=== PATIENT | male | born 1945 | race Two or more races ===

== ENCOUNTER 2024-05-22 22:53 | Emergency (ER) | payer OTHER ==
[~2024-05-22] VITALS: Ht 180.3 cm; Wt 68.9 kg
[2024-05-22] MEDS ORDERED: COZAAR25 MG PO (23:48)
[2024-05-23] MEDS ORDERED: SODIUM CHLORIDE 0.45 % 500 ML IV STA (01:43)
[2024-05-23] MEDS ORDERED: CIPROFLOXACIN IN 5 % DEXTROSE 400 MG/200 ML PIGGYBAG IV STA (01:44)
[2024-05-23 02:44] LABS: URINE APPEARANCE Clear; URINE BILIRRUBIN Negative (NEGATIVE); URINE BLOOD Large; URINE COLOR Yellow; URINE GLUCOSE Negative (NEGATIVE); URINE KETONE Trace (NEGATIVE); URINE LEUKOCYTE Small; URINE NITRATE Positive; URINE PROTEIN Negative (NEGATIVE); URINE UROBILINOGEN 0.2 E.U./dl
[2024-05-23 02:47] LABS: URINE BACTERIA 5624.1 uL (0.0-1933); URINE CAST 1.52 uL (0.0-1.40); URINE EPITHELIAL CELLS 6.1 uL (0.0-38.8); URINE RBC 837.5 uL (0.0-20.8); URINE WBC 68.4 uL (0.0-23.2)
[2024-05-23 02:51] LABS: HEMATOCRIT 35.5 % (39.0-48.0); HEMOGLOBIN 11.7 g/dL (13-16.00); MEAN CELL VOLUME 87.3 fL (80.0-100.00); MEAN CORPUSCULAR HEMOGLOBIN 28.7 pg (27.00-32.0); MEAN CORPUSCULAR HGB CONC 32.8 g/dl (32.0-36.0); PLATELET COUNT 152 K/uL (150-450); RED BLOOD COUNT 4.07 M/uL (4.00-6.00); RED CELL DISTRIBUTION WIDTH 15.9 % (11.5-14.5)
[2024-05-23 03:02] LABS: CALCIUM 9.1 mg/dL (8.5-10.1); CREATININE SERUM 1.36 mg/dL (0.70-1.30); GFR 50.81; POTASSIUM 4.43 mEq/L (3.5-5.1)
== END 2024-05-23 04:48 | disposition home or self-care (01) ==
LOC: ER 22:54
DX: R31.9 Hematuria, unspecified (principal); N39.0 Urinary tract infection, site not specified; I10 Essential (primary) hypertension
CPT/HCPCS: 36415; 51702; 96365; 99282; J0744

== ENCOUNTER 2024-06-26 13:26 | Inpatient (IN) | payer OTHER ==
[~2024-06-26] VITALS: Ht 177.8 cm; Wt 68.0 kg
[~2024-06-26 13:26] MED LIST: COZAAR25 MG PO
[2024-06-26] MEDS ORDERED: TRAMADOL HCL 50 MG TABLET PO STA (15:40)
[2024-06-26 16:50] LABS: HEMATOCRIT 32.1 % (39.0-48.0); HEMOGLOBIN 10.3 g/dL (13-16.00); MEAN CELL VOLUME 85.4 fL (80.0-100.00); MEAN CORPUSCULAR HEMOGLOBIN 27.3 pg (27.00-32.0); PLATELET COUNT 168 K/uL (150-450); RED BLOOD COUNT 3.77 M/uL (4.00-6.00); RED CELL DISTRIBUTION WIDTH 16.6 % (11.5-14.5)
[2024-06-26 17:34] LABS: ALBUMIN 3.2 gm/dL (3.4-5.0); BILIRUBIN TOTAL 0.71 mg/dL (0.3-1.2); CREATININE SERUM 1.3 mg/dL (0.70-1.30); GFR 53.39; GLOBULINA 4.2 G/DL (2.4-3.5); POTASSIUM 5.02 mEq/L (3.5-5.1); TOTAL PROTEIN 7.4 gm/dL (6.4-8.2)
[2024-06-26 18:07] LABS: URINE APPEARANCE Cloudy; URINE BILIRRUBIN Negative (NEGATIVE); URINE BLOOD Moderate; URINE COLOR Yellow; URINE GLUCOSE Negative (NEGATIVE); URINE KETONE Trace (NEGATIVE); URINE LEUKOCYTE Moderate; URINE NITRATE Positive; URINE UROBILINOGEN 0.2 E.U./dl
[2024-06-26 18:08] LABS: URINE BACTERIA 6873.2 uL (0.0-1933); URINE CAST 1.67 uL (0.0-1.40); URINE EPITHELIAL CELLS 12.8 uL (0.0-38.8); URINE RBC 46.8 uL (0.0-20.8); URINE WBC 770.8 uL (0.0-23.2)
[2024-06-26 18:20] LABS: URINE PROTEIN 100 (NEGATIVE)
[2024-06-26] MEDS ORDERED: CEFTRIAXONE SODIUM 2,000 MG VIAL IV ONE (22:45)
[2024-06-26] MEDS ORDERED: 0.9 % SODIUM CHLORIDE 500 ML IV ONE (22:45)
[2024-06-26] MEDS ORDERED: KETOROLAC TROMETHAMINE 15 MG VIAL IU ONE (23:30)
[2024-06-26] MEDS ORDERED: ACETAMINOPHEN 500 MG GEL..CAP PO PRN (23:30)
[2024-06-26] MEDS ORDERED: 0.9 % SODIUM CHLORIDE 1,000 ML IV SCH (23:30)
[2024-06-26] MEDS ORDERED: MEPERIDINE HCL/PF 25 MG/ML VIAL IM PRN (23:30)
[2024-06-27 00:02] VITALS: BP 110/60
[2024-06-27 01:54] LABS: INR 1.12; PARTIAL THROMBOPLASTIN TIME 26.4 SECONDS (22.0-34.0); PROTHROMBIN TIME 12.1 SECONDS (9.0-11.5)
[2024-06-27 01:56] LABS: C-REACTIVE PROTEIN 3.66 MG/DL (0.00-0.29)
[2024-06-27 07:45] VITALS: BP 106/48; O2SAT 100
[2024-06-27] MEDS ORDERED: FAMOTIDINE/PF 20 MG in 0.9 % SODIUM CHLORIDE 8 ML IV PUSH SCH (09:00)
[2024-06-27] MEDS ORDERED: LOSARTAN POTASSIUM 25 MG TABLET PO SCH (09:00)
[2024-06-27] MEDS ORDERED: CEFTRIAXONE SODIUM 2,000 MG in 0.9 % SODIUM CHLORIDE 100 ML IV SCH (09:00)
[2024-06-27] MEDS ORDERED: ENOXAPARIN SODIUM 40 MG/0.4 ML SYRINGE SUBCUTANEO SCH (09:00)
[2024-06-27 18:07] VITALS: BP 176/71
[2024-06-28 00:13] VITALS: BP 126/57; O2SAT 96
[2024-06-28 06:16] LABS: HEMATOCRIT 27.4 % (39.0-48.0); HEMOGLOBIN 9.1 g/dL (13-16.00); MEAN CELL VOLUME 84.6 fL (80.0-100.00); MEAN CORPUSCULAR HEMOGLOBIN 28.1 pg (27.00-32.0); MEAN CORPUSCULAR HGB CONC 33.2 g/dl (32.0-36.0); PLATELET COUNT 143 K/uL (150-450); RED BLOOD COUNT 3.25 M/uL (4.00-6.00); RED CELL DISTRIBUTION WIDTH 16.2 % (11.5-14.5)
[2024-06-28 06:31] LABS: ALBUMIN 2.6 gm/dL (3.4-5.0); BILIRUBIN TOTAL 0.37 mg/dL (0.3-1.2); CALCIUM 8.2 mg/dL (8.5-10.1); CREATININE SERUM 1.54 mg/dL (0.70-1.30); GFR 43.91; GLOBULINA 3.3 G/DL (2.4-3.5); PHOSPHOROUS 3.3 mg/dL (2.5-4.9); POTASSIUM 5.01 mEq/L (3.5-5.1); PROSTATIC SPECIFIC ANTIGEN 3.04 NG/ML (0.010-4.00); TOTAL PROTEIN 5.9 gm/dL (6.4-8.2)
[2024-06-28 06:46] LABS: C-REACTIVE PROTEIN 2.57 MG/DL (0.00-0.29)
[2024-06-28 09:06] VITALS: BP 162/69; O2SAT 96
[2024-06-28] MEDS ORDERED: TAMSULOSIN HCL 0.4 MG CAP PO SCH (17:00)
[2024-06-28] MEDS ORDERED: MOMETASONE FUROATE 15 GM TUBE TOP SCH (17:00)
[2024-06-28] MEDS ORDERED: FINASTERIDE 5 MG TABLET PO SCH (17:00)
[2024-06-28 18:14] VITALS: BP 175/69
[2024-06-28] MEDS ORDERED: NA PHOS,M-B/NA PHOS,DI-BA 1 BOTTLE ENEMA RECTAL STA (22:27)
[2024-06-28 23:33] LABS: INR 1.07; PARTIAL THROMBOPLASTIN TIME 28.6 SECONDS (22.0-34.0); PROTHROMBIN TIME 11.6 SECONDS (9.0-11.5)
[2024-06-28 23:45] LABS: ALBUMIN 2.5 gm/dL (3.4-5.0); BILIRUBIN TOTAL 0.27 mg/dL (0.3-1.2); BILIRUBIN,CONJUGATED 0.11 mg/dL (0.0-0.2); BILIRUBIN,UNCONJUGATED 0.16 mg/dL (0.0-0.6); CREATININE SERUM 1.6 mg/dL (0.70-1.30); T4 FREE 1.03 NG/ML (0.76-1.46); T4 TOTAL 7.27 UG/DL (4.5-12.1); TOTAL PROTEIN 5.6 gm/dL (6.4-8.2); TSH 1.43 uIU/mL (0.358-3.74)
[2024-06-29 01:52] VITALS: BP 172/75; O2SAT 98
[2024-06-29 06:20] LABS: HEMATOCRIT 27.1 % (39.0-48.0); MEAN CELL VOLUME 84.7 fL (80.0-100.00); MEAN CORPUSCULAR HEMOGLOBIN 28.1 pg (27.00-32.0); MEAN CORPUSCULAR HGB CONC 33.1 g/dl (32.0-36.0); PLATELET COUNT 132 K/uL (150-450); RED CELL DISTRIBUTION WIDTH 16.3 % (11.5-14.5)
[2024-06-29 08:57] VITALS: BP 170/68; O2SAT 97
[2024-06-29] MEDS ORDERED: NA PHOS,M-B/NA PHOS,DI-BA 1 BOTTLE ENEMA RECTAL NR (09:00)
[2024-06-29 11:24] LABS: PLATELET ESTIMATE DECREASED (NORMAL)
[2024-06-29] MEDS ORDERED: VANCOMYCIN HCL 1,000 MG VIAL IV NR (13:00)
[2024-06-29] MEDS ORDERED: KETOROLAC TROMETHAMINE 30 MG VIAL IV PRN (13:45)
[2024-06-29] MEDS ORDERED: PANTOPRAZOLE SODIUM 40 MG TABLET.DR PO SCH (17:00)
[2024-06-29] MEDS ORDERED: METOPROLOL SUCCINATE 25 MG TAB.SR.24H PO SCH (17:00)
[2024-06-29 17:49] VITALS: BP 150/56
[2024-06-29 18:14] LABS: URINE APPEARANCE Cloudy; URINE BILIRRUBIN Negative (NEGATIVE); URINE BLOOD Small; URINE COLOR Yellow; URINE GLUCOSE Negative (NEGATIVE); URINE KETONE Negative (NEGATIVE); URINE LEUKOCYTE Moderate; URINE NITRATE Negative; URINE PROTEIN 30 (NEGATIVE); URINE UROBILINOGEN 0.2 E.U./dl
[2024-06-29 18:18] LABS: URINE BACTERIA 560.5 uL (0.0-1933); URINE CAST 4.42 uL (0.0-1.40); URINE EPITHELIAL CELLS 18.2 uL (0.0-38.8); URINE RBC 14.5 uL (0.0-20.8); URINE WBC 139.7 uL (0.0-23.2)
[2024-06-29 19:13] LABS: URINE CRYSTALS MODERATE /HPF
[2024-06-29] MEDS ORDERED: DOCUSATE SODIUM 100MG CAP PO SCH (21:00)
[2024-06-29] MEDS ORDERED: ALPRAzolam 0.5 MG TABLET PO SCH (21:00)
[2024-06-29] MEDS ORDERED: ENOXAPARIN SODIUM 40 MG/0.4 ML SYRINGE SUBCUTANEO SCH (21:00)
[2024-06-29] MEDS ORDERED: CYCLOBENZAPRINE HCL 5 MG TABLET PO SCH (21:00)
[2024-06-30 00:46] VITALS: BP 125/60; O2SAT 99
[2024-06-30 04:47] LABS: HEMATOCRIT 25.8 % (39.0-48.0); MEAN CELL VOLUME 83.5 fL (80.0-100.00); MEAN CORPUSCULAR HEMOGLOBIN 29.2 pg (27.00-32.0); PLATELET COUNT 129 K/uL (150-450); RED BLOOD COUNT 3.08 M/uL (4.00-6.00); RED CELL DISTRIBUTION WIDTH 16.6 % (11.5-14.5)
[2024-06-30 05:11] LABS: ALBUMIN 2.7 gm/dL (3.4-5.0); BILIRUBIN TOTAL 0.55 mg/dL (0.3-1.2); CALCIUM 8.4 mg/dL (8.5-10.1); CREATININE SERUM 1.12 mg/dL (0.70-1.30); GFR 63.41; GLOBULINA 3.2 G/DL (2.4-3.5); MAGNESIUM 1.8 mg/dL (1.8-2.4); PHOSPHOROUS 3.1 mg/dL (2.5-4.9); POTASSIUM 4.46 mEq/L (3.5-5.1); TOTAL PROTEIN 5.9 gm/dL (6.4-8.2)
[2024-06-30 05:46] LABS: C-REACTIVE PROTEIN 2.49 MG/DL (0.00-0.29)
[2024-06-30 06:01] LABS: ERYTHROCYTE SEDIMENTATION RATE 116 mm/hr
[2024-06-30 08:49] VITALS: BP 142/66; O2SAT 97
[2024-06-30] MEDS ORDERED: LOSARTAN/HYDROCHLOROTHIAZIDE 1 UDTAB TABLET PO SCH (09:00)
[2024-06-30] MEDS ORDERED: VANCOMYCIN HCL 1,000 MG VIAL IV SCH ×2 (12:00→21:00)
[2024-06-30 16:36] VITALS: BP 147/63
[2024-06-30] MEDS ORDERED: PANTOPRAZOLE SODIUM 40 MG TABLET.DR PO SCH (21:00)
[2024-07-01 02:39] VITALS: BP 105/50; O2SAT 96
[2024-07-01 09:27] VITALS: BP 150/57; O2SAT 98
[2024-07-01 17:31] VITALS: BP 148/63; O2SAT 96
[2024-07-02 02:29] VITALS: BP 113/69; O2SAT 97
[2024-07-02 09:45] VITALS: BP 157/69; O2SAT 99
[2024-07-02 16:46] VITALS: BP 168/58; O2SAT 90
[2024-07-03 02:41] VITALS: BP 167/62; O2SAT 95
[2024-07-03 09:02] VITALS: BP 154/61
[2024-07-03 17:41] VITALS: BP 174/47
[2024-07-04 00:38] VITALS: BP 123/79; O2SAT 99
[2024-07-04 06:11] LABS: HEMOGLOBIN 9.2 g/dL (13-16.00); MEAN CELL VOLUME 84.7 fL (80.0-100.00); MEAN CORPUSCULAR HEMOGLOBIN 27.9 pg (27.00-32.0); MEAN CORPUSCULAR HGB CONC 32.9 g/dl (32.0-36.0); PLATELET COUNT 135 K/uL (150-450); RED CELL DISTRIBUTION WIDTH 16.8 % (11.5-14.5)
[2024-07-04 06:47] LABS: ERYTHROCYTE SEDIMENTATION RATE 91 mm/hr
[2024-07-04 06:50] LABS: ALBUMIN 2.5 gm/dL (3.4-5.0); BILIRUBIN TOTAL 0.38 mg/dL (0.3-1.2); CALCIUM 8.4 mg/dL (8.5-10.1); CREATININE SERUM 1.31 mg/dL (0.70-1.30); GFR 52.92; GLOBULINA 3.3 G/DL (2.4-3.5); MAGNESIUM 1.8 mg/dL (1.8-2.4); PHOSPHOROUS 3.7 mg/dL (2.5-4.9); POTASSIUM 4.31 mEq/L (3.5-5.1); TOTAL PROTEIN 5.8 gm/dL (6.4-8.2)
[2024-07-04 06:52] LABS: C-REACTIVE PROTEIN 2.84 MG/DL (0.00-0.29)
[2024-07-04 08:35] VITALS: BP 190/72; O2SAT 94
[2024-07-04] MEDS ORDERED: FUROsemide 20 MG/2 ML VIAL IV STA (09:29)
[2024-07-04] MEDS ORDERED: SODIUM CHLORIDE 0.45 % 1,000 ML IV SCH (09:30)
[2024-07-04] MEDS ORDERED: NITROGLYCERIN IN 5 % DEXTROSE 250 ML IV SCH (09:30)
[2024-07-04 10:59] LABS: ABG PH 7.438 (7.35-7.45); ABG PO2 84.4 mmHg (80-100); ABG pCO2 31.2 mmHg (35-45); BASE EXCESS -2.4 mmol/l; BICARBONATE 20.6 mmol/l (23-25); SaO2 96.6 %
[2024-07-04 11:00] LABS: Tco2 21.6 mmol/l; allen test SATISFACTORY; o2 32 %; puncture site RADIAL LEFT
[2024-07-04] MEDS ORDERED: METOPROLOL SUCCINATE 50 MG TAB.SR.24H PO SCH (17:00)
[2024-07-04] MEDS ORDERED: ALPRAzolam 0.5 MG TABLET PO SCH (17:00)
[2024-07-04] MEDS ORDERED: FUROsemide 20 MG/2 ML VIAL IV SCH (21:00)
[2024-07-05] MEDS ORDERED: LOSARTAN POTASSIUM 50 MG TABLET PO SCH (09:00)
== END 2024-07-04 18:16 | disposition designated cancer center or children's hospital (05) | DRG 689 ==
LOC: ER 13:26 → MEDJ 23:23
PROVIDERS: General Practice; Internal Medicine Infectious Disease; Nurse Practitioner Family; ADMIT Internal Medicine; ATTEND Internal Medicine
PROC: BW21ZZZ Computerized Tomography (CT Scan) of Abdomen and Pelvis (ICD-10-PCS; 2024-06-26)
PROC: B24BZZZ Ultrasonography of Heart with Aorta (ICD-10-PCS; 2024-06-28)
PROC: 4A12X4Z Monitoring of Cardiac Electrical Activity, External Approach (ICD-10-PCS; principal; 2024-06-29)
DX: N39.0 Urinary tract infection, site not specified (principal); I33.0 Acute and subacute infective endocarditis; J18.9 Pneumonia, unspecified organism; I35.1 Nonrheumatic aortic (valve) insufficiency; I11.0 Hypertensive heart disease with heart failure; I50.9 Heart failure, unspecified; B96.1 Klebsiella pneumoniae [K. pneumoniae] as the cause of diseases classified elsewhere; B96.20 Unspecified Escherichia coli [E. coli] as the cause of diseases classified elsewhere

== ENCOUNTER 2024-12-27 09:26 | Inpatient (IN) | payer OTHER ==
[~2024-12-27] VITALS: Ht 177.8 cm; Wt 72.6 kg
--- NOTE | 2024-12-27 09:43 | NUR ---
PTE REFIEFE MALETAR AL ORINAL DESDE HACE VARIOS FLORES. PTE REFIEFE QUE SE REALIZO PRUEBA DE ORINA LA CUAL SALIO CON INFECCION . EL MEDICO DE CAB[place] LE INDICO QUE PASARA A LA MAYA DE EMERGENCIA PARA ANTIBITIOCO POR VENA. SE LE SALVADOR S/VY SE UBICA EN MAYA DE ESPERA.
[2024-12-27] MEDS ORDERED: 0.9 % SODIUM CHLORIDE 1,000 ML IV STA (10:13)
[2024-12-27] MEDS ORDERED: PIPERACILLIN/TAZOBACTAM SODIUM 3.375 GM VIAL IV STA (10:14)
[2024-12-27] MEDS ORDERED: AMIODARONE HCL100 MG (10:23)
[2024-12-27] MEDS ORDERED: FINASTERIDE5 MG (10:23)
[2024-12-27] MEDS ORDERED: TOPROL XL50 M1 (10:23)
[2024-12-27] MEDS ORDERED: XARELTO20 MG (10:23)
[2024-12-27] MEDS ORDERED: TAMSULOSIN HCL0.4 MG (10:24)
[2024-12-27] MEDS ORDERED: LOSARTAN POTASS25 MG (10:24)
[2024-12-27] MEDS ORDERED: PIPERACILLIN/TAZOBACTAM SODIUM 3.375 GM VIAL IV ONE (10:25)
--- NOTE | 2024-12-27 11:12 | NUR ---
SE ORIENTA A PTE SOBRE TX MEDICO EL MISMO INDICA ENTENDER Y ACEPTAR, SE SERAFIN MUESTRAS DE LAB BAJO MEDIDAS ASEPTICAS STEPAN ORDEN MEDICA, SE MEDICAMENTOS STEPAN ORDEN MEDICA, PTE SE UBICA EN CAMA 09 CON BARRANDAS ELEVADAS.
[2024-12-27 11:15] LABS: HEMATOCRIT 35.4 % (39.0-48.0); HEMOGLOBIN 11.9 g/dL (13-16.00); MEAN CELL VOLUME 88.4 fL (80.0-100.00); MEAN CORPUSCULAR HEMOGLOBIN 29.7 pg (27.00-32.0); MEAN CORPUSCULAR HGB CONC 33.6 g/dl (32.0-36.0); RED BLOOD COUNT 4.01 M/uL (4.00-6.00)
[2024-12-27 11:31] LABS: ALBUMIN 3.7 gm/dL (3.4-5.0); BILIRUBIN TOTAL 0.58 mg/dL (0.3-1.2); CALCIUM 8.6 mg/dL (8.5-10.1); CREATININE SERUM 1.68 mg/dL (0.70-1.30); GFR 39.71; GLOBULINA 3.5 G/DL (2.4-3.5); POTASSIUM 5.55 mEq/L (3.5-5.1); TOTAL PROTEIN 7.2 gm/dL (6.4-8.2)
[2024-12-27 11:41] LABS: PLATELET COUNT 70 K/uL (150-450)
[2024-12-27 11:50] LABS: RED CELL DISTRIBUTION WIDTH 20.8 % (11.5-14.5)
[2024-12-27 12:10] LABS: PH,URINE 6.5 (5.0-8.0); URINE APPEARANCE Clear; URINE BILIRRUBIN Negative (NEGATIVE); URINE BLOOD Moderate; URINE COLOR Yellow; URINE KETONE Negative (NEGATIVE); URINE LEUKOCYTE Small; URINE NITRATE Positive; URINE PROTEIN Trace (NEGATIVE)
[2024-12-27 12:11] LABS: URINE BACTERIA 5693.4 uL (0.0-1933); URINE CAST 3.97 uL (0.0-1.40); URINE EPITHELIAL CELLS 10.1 uL (0.0-38.8); URINE RBC 49.1 uL (0.0-20.8); URINE WBC 126.1 uL (0.0-23.2)
[2024-12-27 12:37] LABS: URINE GLUCOSE 500 MG/DL (NEGATIVE)
[2024-12-27] MEDS ORDERED: AMIODARONE HCL 200 MG TABLET PO SCH (19:24)
[2024-12-27] MEDS ORDERED: levoFLOXacin IN DEXTROSE 5 % 100 ML IV SCH (19:25)
[2024-12-27] MEDS ORDERED: 0.9 % SODIUM CHLORIDE 1,000 ML IV SCH (19:30)
[2024-12-27] MEDS ORDERED: ACETAMINOPHEN 500 MG GEL..CAP PO PRN (19:30)
[2024-12-27] MEDS ORDERED: levoFLOXacin IN DEXTROSE 5 % 500MG/100ML PIGGYBAG IV ONE (20:21)
[2024-12-27 21:03] VITALS: BP 149/83; O2SAT 96
[2024-12-27] MEDS ORDERED: SODIUM POLYSTYRENE SULFONATE 15 G/4 TSP TSP PO SCH (22:22)
[2024-12-28 03:24] VITALS: BP 122/81; O2SAT 96
[2024-12-28] MEDS ORDERED: FINASTERIDE 5 MG TABLET PO SCH (09:00)
[2024-12-28] MEDS ORDERED: TAMSULOSIN HCL 0.4 MG CAP PO SCH (09:00)
[2024-12-28] MEDS ORDERED: FAMOTIDINE/PF 20 MG in 0.9 % SODIUM CHLORIDE 8 ML IV PUSH SCH (09:00)
[2024-12-28] MEDS ORDERED: RIVAROXABAN 20 MG TABLET PO SCH (09:00)
[2024-12-28] MEDS ORDERED: PANTOPRAZOLE SODIUM 40 MG/VIAL VIAL IV SCH (09:00)
[2024-12-28] MEDS ORDERED: METOPROLOL SUCCINATE 50 MG TAB.SR.24H PO SCH (09:00)
[2024-12-28] MEDS ORDERED: CEFTRIAXONE SODIUM 2,000 MG VIAL IV SCH (14:27)
[2024-12-28] MEDS ORDERED: MEROPENEM 500 MG/VIAL VIAL IV SCH (17:00)
[2024-12-28 18:21] VITALS: BP 120/75; O2SAT 99
[2024-12-29 02:28] VITALS: BP 118/74; O2SAT 95
[2024-12-29 06:49] LABS: HEMATOCRIT 33.1 % (39.0-48.0); HEMOGLOBIN 11.3 g/dL (13-16.00); MEAN CELL VOLUME 88.3 fL (80.0-100.00); MEAN CORPUSCULAR HEMOGLOBIN 30.2 pg (27.00-32.0); MEAN CORPUSCULAR HGB CONC 34.1 g/dl (32.0-36.0); RED BLOOD COUNT 3.75 M/uL (4.00-6.00); RED CELL DISTRIBUTION WIDTH 20.2 % (11.5-14.5)
[2024-12-29 06:49] LABS: PH,URINE 5.5 (5.0-8.0); URINE APPEARANCE Clear; URINE BILIRRUBIN Negative (NEGATIVE); URINE BLOOD Small; URINE COLOR Yellow; URINE GLUCOSE Negative (NEGATIVE); URINE KETONE Negative (NEGATIVE); URINE LEUKOCYTE Small; URINE NITRATE Negative; URINE PROTEIN Negative (NEGATIVE); URINE UROBILINOGEN 0.2 E.U./dl
[2024-12-29 06:50] LABS: URINE BACTERIA 141.9 uL (0.0-1933); URINE EPITHELIAL CELLS 3.6 uL (0.0-38.8); URINE RBC 25.9 uL (0.0-20.8); URINE WBC 51.8 uL (0.0-23.2)
[2024-12-29 07:08] LABS: ALBUMIN 3.3 gm/dL (3.4-5.0); ALKALINE PHOSPHATASE 80 U/L (50-136); ALT/SGPT 16 U/L (12-78); ANION GAP 9 (10.0-20.0); AST/SGOT 22 U/L (15-37); BLOOD UREA NITROGEN 25 mg/dL (7-18); BUN CREA RATIO 16 (7.0-25.0); CARBON DIOXIDE 27 mEq/L (21-32); CHLORIDE 112 mmol/L (98-107); CREATININE SERUM 1.58 mg/dL (0.70-1.30); GFR 42.63; GLOBULINA 2.7 G/DL (2.4-3.5); GLUCOSE FASTING 98 mg/dL (65-100); OSMOLALITY SERUM 289 MOSM/KG (275-295); PHOSPHOROUS 3.6 mg/dL (2.5-4.9); POTASSIUM 4.88 mEq/L (3.5-5.1); PROSTATIC SPECIFIC ANTIGEN 0.636 NG/ML (0.010-4.00); SODIUM 143 mmol/L (136-145)
[2024-12-29 07:28] LABS: C-REACTIVE PROTEIN < 0.29 MG/DL (0.00-0.29)
[2024-12-29 07:30] LABS: PLATELET COUNT 64 K/uL (150-450)
[2024-12-29 08:28] VITALS: BP 117/81
[2024-12-29 16:52] VITALS: BP 132/90; O2SAT 97
[2024-12-30 00:50] VITALS: BP 95/58; O2SAT 96
[2024-12-30 08:11] VITALS: BP 100/68
[2024-12-30 18:45] VITALS: BP 130/77; O2SAT 100
[2024-12-31 01:17] VITALS: BP 128/76; O2SAT 96
[2024-12-31 08:25] VITALS: BP 96/62
[2024-12-31 18:53] VITALS: BP 123/81; O2SAT 97
[2025-01-01 01:19] VITALS: BP 133/80; O2SAT 97
[2025-01-01 08:25] VITALS: BP 112/81; O2SAT 97
[2025-01-01 12:15] LABS: URINE APPEARANCE Clear; URINE BILIRRUBIN Negative (NEGATIVE); URINE BLOOD Small; URINE COLOR Yellow; URINE GLUCOSE Negative (NEGATIVE); URINE KETONE Negative (NEGATIVE); URINE LEUKOCYTE Negative; URINE NITRATE Negative; URINE PROTEIN Negative (NEGATIVE); URINE UROBILINOGEN 0.2 E.U./dl
[2025-01-01 12:17] LABS: URINE BACTERIA 25.6 uL (0.0-1933); URINE CAST 1.91 uL (0.0-1.40); URINE EPITHELIAL CELLS 5.6 uL (0.0-38.8); URINE WBC 10.2 uL (0.0-23.2)
[2025-01-01 12:59] LABS: BASO % 0.8 % (0.1-1.2); EOS # 0.22 (0.04-0.54); EOS % 2.3 % (0.7-7.0); HEMATOCRIT 37.2 % (40.1-51.0); HEMOGLOBIN 12.4 g/dL (13.7-17.5); LYMPH # 2.49 (1.18-3.74); MEAN CORPUSCULAR HEMOGLOBIN 29.5 pg (25.6-32.2); MONO # 1.79 (0.24-0.82); NEUT # 4.89 (1.56-6.13); NEUT % 51.3 % (34.0-71.1); RED CELL DISTRIBUTION WIDTH 18.5 % (11.6-14.4)
[2025-01-01 13:07] LABS: MONO % 18.7 % (4.7-12.5); PLATELET COUNT 76 K/uL (163-369)
[2025-01-01 13:40] LABS: INR 1.16; PARTIAL THROMBOPLASTIN TIME 30.1 SECONDS (22.0-34.0); PROTHROMBIN TIME 12.5 SECONDS (9.0-11.5)
[2025-01-01 16:53] LABS: ALBUMIN 3.2 gm/dL (3.4-5.0); BILIRUBIN TOTAL 0.62 mg/dL (0.3-1.2); CALCIUM 7.9 mg/dL (8.5-10.1); CREATININE SERUM 1.51 mg/dL (0.70-1.30); GFR 44.91; GLOBULINA 2.7 G/DL (2.4-3.5); POTASSIUM 4.68 mEq/L (3.5-5.1); TOTAL PROTEIN 5.9 gm/dL (6.4-8.2)
[2025-01-01 17:21] VITALS: BP 116/64
[2025-01-02 02:29] VITALS: BP 112/70; O2SAT 95
[2025-01-02 08:14] VITALS: BP 109/73
[2025-01-02] MEDS ORDERED: PANTOPRAZOLE SODIUM 40 MG TABLET.DR PO SCH (09:00)
[2025-01-02] MEDS ORDERED: XARELTO20 MG PO (09:15)
[2025-01-02] MEDS ORDERED: TAMS0.4C PO (09:15)
[2025-01-02] MEDS ORDERED: AMIODARONE HCL200 MG PO (09:16)
[2025-01-02] MEDS ORDERED: COZAAR25 MG PO (09:16)
[2025-01-02] MEDS ORDERED: FINASTERIDE5 MG PO (09:17)
[2025-01-02] MEDS ORDERED: PANTOPRAZOLE SO40 MG PO (09:17)
[2025-01-02] MEDS ORDERED: TOPROL XL50 M1 PO (09:17)
[2025-01-02] MEDS ORDERED: FARXIGA10 MG PO (09:18)
== END 2025-01-02 11:22 | disposition home or self-care (01) | DRG 690 ==
LOC: ER 09:42 → MEDJ 19:23
PROVIDERS: Internal Medicine; Internal Medicine Infectious Disease; ADMIT Internal Medicine; ATTEND Internal Medicine
PROC: B24BYZZ Ultrasonography of Heart with Aorta using Other Contrast (ICD-10-PCS; principal; 2024-12-29)
DX: N39.0 Urinary tract infection, site not specified (principal); N17.9 Acute kidney failure, unspecified; I48.91 Unspecified atrial fibrillation; I10 Essential (primary) hypertension